=== PATIENT | female | born 1955 | race Caucasian/White ===

== ENCOUNTER 2017-03-15 20:31 | Emergency (ER) | payer OTHER ==
[~2017-03-15] VITALS: Ht 160 cm; Wt 74.5 kg
[~2017-03-15 20:31] MED LIST: LEVO.05 PO; LOPR50TA12 PO
[2017-03-15] MEDS ORDERED: IOHEXOL 350 MG/ML 10 ML VIAL (for RAD DIAG) IVCONTRAST ONE (20:32)
[2017-03-15 20:52] VITALS: BP 162/86; PULSE 94; RESP 18; TEMP 98.5; O2SAT 94
[2017-03-15] MEDS ORDERED: ARMO30TA PO (20:52)
[2017-03-15] MEDS ORDERED: AMLO10TA2 PO (20:52)
[2017-03-15] MEDS ORDERED: NADO20TA PO (20:52)
[2017-03-15] MEDS ORDERED: LOSA50TA PO (20:52)
[2017-03-15 20:55] VITALS: RESP 18; O2SAT 94
[2017-03-15] MEDS: NITROGLYCERIN 0.4 MG SL 25 TABS/BTL SL SCH ×3 (21:00→21:10)
[2017-03-15] MEDS ORDERED: SODIUM CHLORIDE 0.9% FLUSH 10 ML FLUSH IVF PRN (21:00)
--- NOTE | 2017-03-15 21:08 | PD ---
HPI Chief Complaint: Chest Pain Time Seen by Provider: 20:52 Travel History International Travel<30 days: No Contact w/Intl Traveler<30days: No Traveled to known affect area: No History of Present Illness HPI 61 year-old female presents to the emergency department by private transportation for evaluation of near syncope chest pain and transient low back pain. Patient has history of hypertension and tobaccoism. Patient denies history of diabetes or dyslipidemia. Patient has not had stress test or catheter in the past. No prior history of CAD. Patient states she's been under a normal stress test and was sitting down and started feeling just a wave of weakness about her entire body then developed some chest discomfort that was moderate in intensity but has now decreased to 3/10 in intensity brief tingling sensation in the left upper extremity that has resolved without weakness and then had a bout of diarrhea 2 and then at brief low back pain that has resolved. No lower extremity numbness tingling or weakness no bladder or bowel dysfunction. No saddle anesthesia. No recent injury or fall. Patient denies fever or chills. Patient completed a course of Keflex one week ago that she been taking for dental pain. Patient denies any abdominal pain. No headache. No change in mentation. No visual disturbance. No dizziness. Patient states she took 2 regular strength aspirin prior to arrival to the emergency department. Patient does take antihypertensive and did take her medication today. PFSH Past Medical History Cardiovascular Problems: Yes Hypertension: Yes Thyroid Disease: Yes ?: Not Social History Alcohol Use: Yes (OCC. BEEER) Tobacco Use: Yes (1-2 CIGS PER DAY, "QUITTING') Substance Use: No Allergies-Medications (Allergen,Severity, Reaction): Coded Allergies: No Known Allergies (Verified , 03/15/17) Reported Meds & Prescriptions Reported Meds & Active Scripts Active Reported Randa Thyroid (Thyroid) 30 Mg Tab 30 Mg PO DAILY Amlodipine (Amlodipine Besylate) 10 Mg Tab 10 Mg PO DAILY Losartan (Losartan Potassium) 50 Mg Tab 50 Mg PO DAILY Nadolol 20 Mg Tab 20 Mg PO DAILY Review of Systems Except as stated in HPI: all other systems reviewed are Neg General / Constitutional: No: Fever, Chills Eyes: No: Diploplia, Blurred Vision, Photophobia HENT: No: Headaches, Lightheadedness, Congestion Cardiovascular: Positive: Chest Pain or Discomfort, Irregular Rhythm, No: Palpitations, Diaphoresis, Syncope, Dyspnea on exertion, Edema (near-syncope) Respiratory: No: Cough, Shortness of Breath, Wheezing Gastrointestinal: Positive: Nausea, No: Vomiting, Diarrhea, Abdominal Pain Genitourinary: No: Dysuria Musculoskeletal: Positive: Pain, No: Limited ROM, Weakness Skin: No Rash (brief low-back pain) Neurologic: Positive: Weakness, Paresthesia (transient left upper extremity at shoulder and now resolved), No: Dizziness, Syncope (generalized), Focal Abnormalities, Coordination Problem, Headache, Change in Mentation, Slurred Speech Psychiatric: No: Anxiety Hematologic/Lymphatic: No: Lymph Node Enlargement Physical Exam Narrative GENERAL: Well-developed well-nourished female in no acute distress no respiratory distress SKIN: Warm and dry. HEAD: Atraumatic. Normocephalic. EYES: Pupils equal and round. No scleral icterus. No injection or drainage. ENT: No nasal bleeding or discharge. Mucous membranes pink and moist. NECK: Trachea midline. No JVD. CARDIOVASCULAR: Regular rate and rhythm. RESPIRATORY: No accessory muscle use. Clear to auscultation. Breath sounds equal bilaterally. GASTROINTESTINAL: Abdomen soft, non-tender, nondistended. Hepatic and splenic margins not palpable. MUSCULOSKELETAL: Extremities without clubbing, cyanosis, or edema. No obvious deformities. Radial and dorsalis pedis pulses 2+ to palpation bilaterally. No cervical dorsal or lumbar spine tenderness to direct palpation no flank tenderness to percussion or palpation. NEUROLOGICAL: Awake and alert. No obvious cranial nerve deficits. Motor grossly within normal limits. Five out of 5 muscle strength in the arms and legs. Sensory exam grossly intact. Normal speech. PSYCHIATRIC: Appropriate mood and affect; insight and judgment normal. Data Data Last Documented VS Vital Signs Date Time Temp Pulse Resp B/P (MAP) Pulse Ox O2 Delivery O2 Flow Rate FiO2 03/15/17 23:32 78 18 117/60 (79) 98 Room Air 03/15/17 20:52 98.5 Orders Orders Electrocardiogram (03/15/17 20:52) Basic Metabolic Panel (Bmp) (03/15/17 20:52) Ckmb (Isoenzyme) Profile (03/15/17 20:52) Complete Blood Count With Diff (03/15/17 20:52) Magnesium (Mg) (03/15/17 20:52) Prothrombin Time / Inr (Pt) (03/15/17 20:52) Act Partial Throm Time (Ptt) (03/15/17 20:52) Troponin I (03/15/17 20:52) Chest, Single Ap (03/15/17 20:52) Ecg Monitoring (03/15/17 20:52) Bilateral Bp Monitoring (03/15/17 20:52) Iv Access Insert/Monitor (03/15/17 20:52) Oximetry (03/15/17 20:52) Oxygen Administration (03/15/17 20:52) Sodium Chloride 0.9% Flush (Ns Flush) (03/15/17 21:00) Nitroglycerin Sl (Nitrostat Sl) (03/15/17 21:00) Sodium Chlor 0.9% 1000 Ml Inj (Ns 1000 M (03/15/17 21:00) CKMB (03/15/17 21:15) CKMB% (03/15/17 21:15) Ondansetron Inj (Zofran Inj) (03/15/17 22:00) C Diff Toxin Pcr (03/15/17 21:54) Enteric Path (Stool) (03/15/17 21:54) Lactic Acid (03/15/17 21:54) Blood Culture (03/15/17 21:54) Potassium Chloride (Kcl) (03/15/17 22:00) Cta Thor Abd Aorta W Iv C W3d (03/15/17 ) Hepatic Functional Panel (03/15/17 21:15) Lipase (03/15/17 21:15) Metoclopramide Inj (Reglan Inj) (03/15/17 22:30) Iohexol 350 Inj (Omnipaque 350 Inj) (03/15/17 20:32) Sodium Chlorid 0.9% 500 Ml Inj (Ns 500 M (03/15/17 23:45) Sodium Chlorid 0.9% 500 Ml Inj (Ns 500 M (03/15/17 23:45) Labs Laboratory Tests Test 03/15/17 21:15 03/15/17 22:40 03/15/17 23:45 White Blood Count 15.4 TH/MM3 Red Blood Count 4.35 MIL/MM3 Hemoglobin 14.2 GM/DL Hematocrit 41.7 % Mean Corpuscular Volume 95.7 FL Mean Corpuscular Hemoglobin 32.6 PG Mean Corpuscular Hemoglobin Concent 34.0 % Red Cell Distribution Width 12.5 % Platelet Count 292 TH/MM3 Mean Platelet Volume 8.9 FL Neutrophils (%) (Auto) 80.5 % Lymphocytes (%) (Auto) 17.4 % Monocytes (%) (Auto) 0.6 % Eosinophils (%) (Auto) 0.6 % Basophils (%) (Auto) 0.9 % Neutrophils # (Auto) 12.4 TH/MM3 Lymphocytes # (Auto) 2.7 TH/MM3 Monocytes # (Auto) 0.1 TH/MM3 Eosinophils # (Auto) 0.1 TH/MM3 Basophils # (Auto) 0.1 TH/MM3 CBC Comment AUTO DIFF Differential Total Cells Counted 100 Neutrophils % (Manual) 76 % Band Neutrophils % 5 % Lymphocytes % 17 % Monocytes % 1 % Neutrophils # (Manual) 12.6 TH/MM3 Myelocytes 1 % Differential Comment FINAL DIFF MANUAL Platelet Estimate NORMAL Platelet Morphology Comment NORMAL Red Cell Morphology Comment NORMAL Prothrombin Time 10.7 SEC Prothromb Time International Ratio 1.0 RATIO Activated Partial Thromboplast Time 22.9 SEC Blood Urea Nitrogen 23 MG/DL Creatinine 0.89 MG/DL Random Glucose 218 MG/DL Total Protein 7.1 GM/DL Albumin 3.3 GM/DL Calcium Level 8.2 MG/DL Magnesium Level 2.0 MG/DL Alkaline Phosphatase 128 U/L Aspartate Amino Transf (AST/SGOT) 31 U/L Alanine Aminotransferase (ALT/SGPT) 39 U/L Total Bilirubin 0.9 MG/DL Direct Bilirubin 0.2 MG/DL Sodium Level 138 MEQ/L Potassium Level 3.2 MEQ/L Chloride Level 105 MEQ/L Carbon Dioxide Level 22.8 MEQ/L Anion Gap 10 MEQ/L Estimat Glomerular Filtration Rate 65 ML/MIN Indirect Bilirubin 0.7 MG/DL Total Creatine Kinase 129 U/L Creatine Kinase MB 1.7 NG/ML Troponin I 0.05 NG/ML Lipase 342 U/L Lactic Acid Level 2.7 mmol/L Exceptions Acute Myocardial Infarction ASA Not Given on Arrival: Already taken by patient (aspirin 2 tablets) MDM Medical Decision Making Medical Screen Exam Complete: Yes Emergency Medical Condition: Yes Medical Record Reviewed: Yes Interpretation(s) EKG: Normal sinus rhythm rate [address] elevation nonspecific ST segment flattening mild depression no ectopy Last Impressions Chest X-Ray 03/15/172051 Signed Impressions: Service Date/Time: Wednesday, March 15, 2017 21:27 - CONCLUSION: No acute disease. Dillon Merida MD CBC & BMP Diagram 03/15/17 21:15 Calcium Level 8.2 L, Magnesium Level 2.0 Vital Signs Date Time Temp Pulse Resp B/P (MAP) Pulse Ox O2 Delivery O2 Flow Rate FiO2 03/15/17 21:37 84 18 142/82 (102) 98 Room Air 03/15/17 21:32 82 113/73 (86) 123/66 (85) 03/15/17 20:55 18 94 Room Air 03/15/17 20:55 94 Room Air 03/15/17 20:55 94 18 94 Room Air 03/15/17 20:52 98.5 94 18 162/86 (111) 94 @ 23:40 lactic acid elevated: 2.7 Differential Diagnosis Chest pain, atypical chest pain, myocardial infarction, aortic dissection, arrhythmia, PE, electrolyte disturbance, colitis Narrative Course Patient placed on cardiac rehabilitation program director IV access obtained specimens collected and sent for resulting patient did take aspirin prior to arrival to the emergency department sublingual and) administered EKG performed which shows sinus rhythm rate [address] elevation identified patient has nonspecific ST segment depression with baseline artifact present @ 9:53 PM prior to administration of sublingual nitroglycerin residual chest discomfort had resolved completely however patient has subsequently had 2 loose diarrhea type stools and now complains of nausea with dry heaves; administered Zofran 4 mg IV on cardiac rehabilitation program director no ectopy no chest pain no shortness of breath ; Hemoccult of stool negative; PCR for C. difficile specimens sent for enteric pathogen stool specimen sent patient with recent antibiotic use one week ago. Patient also complains of chills recheck vital signs including temperature. AMA: The risks of leaving against medical advice without further evaluation treatment were discussed with the patient. These risks include cardiac dysfunction, cardiac dysrhythmia, possible heart attack, possible stroke or . The patient indicated understanding of these risks and appeared to have the capacity to make this decision. Sepsis Criteria SIRS Criteria (2 or more): Heart rate over 90 (94), WBC > 84880, < 4000 or > 10 % bands (15,400) Sepsis Criteria (SIRS+source): Infect source susp/known (GI/gastroenteritis) Severe Sepsis (+one): Lactate >2 (2.7) Diagnosis Primary Impression: Left against medical advice Disposition: AGAINST MEDICAL ADVICE Condition: Stable Rosa Locke MD Mar 15, 2017 21:08
[2017-03-15] MEDS: SODIUM CHLOR 0.9% 1000 ML INJ 1,000 ML IV SCH ×2 (21:25→23:22)
[2017-03-15 21:32] VITALS: BP_SYST 113; BP_SYST 123; BP_DIAS 66; BP_DIAS 73; PULSE 82
[2017-03-15 21:35] LABS: AUTOMATED NEUTROPHIL # 12.4 TH/MM3 (1.8-7.7); BASOPHIL # 0.1 TH/MM3 (0-0.2); BASOPHIL % 0.9 % (0.0-2.0); EOSINOPHIL # 0.1 TH/MM3 (0-0.4); EOSINOPHIL % 0.6 % (0.0-4.0); HEMATOCRIT 41.7 % (35.0-46.0); LYMPH % 17.4 % (9.0-44.0); LYMPHOCYTE # 2.7 TH/MM3 (1.0-4.8); MEAN CELL VOLUME 95.7 FL (80.0-100.0); MEAN CORPUSCULAR HEMOGLOBIN 32.6 PG (27.0-34.0); MONO % 0.6 % (0.0-8.0); NEUT % 80.5 % (16.0-70.0); PLATELET COUNT 292 TH/MM3 (150-450); RED BLOOD COUNT 4.35 MIL/MM3 (4.00-5.30); RED CELL DISTRIBUTION WIDTH 12.5 % (11.6-17.2); WHITE BLOOD COUNT 15.4 TH/MM3 (4.0-11.0)
[2017-03-15 21:37] VITALS: BP 142/82; PULSE 84; RESP 18; O2SAT 98
[2017-03-15 21:39] LABS: HEMO FLAGS AUTO DIFF
[2017-03-15 21:42] LABS: CHLORIDE 105 MEQ/L (98-107); POTASSIUM 3.2 MEQ/L (3.5-5.1); SODIUM (NA) 138 MEQ/L (136-145)
--- NOTE | 2017-03-15 21:42 | RADRPT ---
EXAM DATE/TIME: 03/15/2017 21:27 [facility] COMPARISON: No previous studies available for comparison. INDICATIONS : Chest pain. MEDICAL HISTORY : Hypertension. Thyroid disease SURGICAL HISTORY : None. ENCOUNTER: Initial ACUITY: 1 day PAIN SCORE: 7/10 LOCATION: Bilateral chest FINDINGS: A single view of the chest demonstrates the lungs to be symmetrically aerated without evidence of mas s, infiltrate or effusion. The cardiomediastinal contours are unremarkable. Osseous structures are intact. CONCLUSION: No acute disease. Dillon Merida MD on March 15, 2017 at 21:41 Board Certified Radiologist. This report was verified electronically.
[2017-03-15 21:45] LABS: ANION GAP 10 MEQ/L (5-15); BICARBONATE 22.8 MEQ/L (21.0-32.0); BLOOD UREA NITROGEN 23 MG/DL (7-18)
[2017-03-15 21:48] LABS: APTT (PATIENT) 22.9 SEC (24.3-30.1); GLOMERULAR FILTRATION RATE 65 ML/MIN (>89); PROTHROMBIN TIME - PATIENT 10.7 SEC (9.8-11.6)
[2017-03-15 21:51] LABS: CREATINE KINASE 129 U/L (26-192)
[2017-03-15] MEDS ORDERED: POTASSIUM CHLORIDE 20 MEQ CONTROLLED RELEASE TAB PO ONE (22:00)
[2017-03-15] MEDS ORDERED: ONDANSETRON HCL 4 MG/2 ML VIAL IV PUSH ONE (22:00)
[2017-03-15 22:03] LABS: BANDS 5 % (0-6); MYELOCYTES 1 % (0-0); NEUTROPHIL # MANUAL DIFF 12.6 TH/MM3 (1.8-7.7); POLYS (SEG NEUTROPHILS) 76 % (16-70); WBC DIFF SAMPLE 100
[2017-03-15 22:04] LABS: CKMB 1.7 NG/ML (0.5-3.6); PLATELET ESTIMATE SMEAR NORMAL (NORMAL); PLATELET MORPHOLOGY NORMAL (NORMAL); SCAN/DIFF FINAL DIFF MANUAL
[2017-03-15 22:21] LABS: ALT (GPT) 39 U/L (10-53)
[2017-03-15 22:22] LABS: AST (GOT) 31 U/L (15-37)
[2017-03-15 22:23] LABS: INDIRECT BILIRUBIN 0.7 MG/DL (0.0-0.8); TOTAL BILIRUBIN ADULT 0.9 MG/DL (0.2-1.0)
[2017-03-15 22:25] LABS: ALKALINE PHOSPHATASE 128 U/L (45-117)
[2017-03-15] MEDS ORDERED: METOCLOPRAMIDE HCL 10 MG/2 ML VIAL IV PUSH ONE (22:30)
[2017-03-15 23:32] VITALS: BP 117/60; PULSE 78; RESP 18; O2SAT 98
[2017-03-15] MEDS ORDERED: SODIUM CHLORID 0.9% 500 ML INJ 500 ML IV ONE ×2 (23:45)
--- NOTE | 2017-03-16 00:39 | RADRPT ---
EXAM DATE/TIME: 03/15/2017 23:05 [facility] COMPARISON: No previous studies available for comparison. INDICATIONS : Left sided chest pain. Rule out dissection. IV CONTRAST: 99 cc Omnipaque 350 (iohexol) IV RADIATION DOSE: 19.44 CTDIvol (mGy) MEDICAL HISTORY : Hypertension. Cardiovascular disease SURGICAL HISTORY : None. ENCOUNTER: Initial ACUITY: 1 day PAIN SCALE: 5/10 LOCATION: Left chest TECHNIQUE: Volumetric scanning was performed using a multi-row detector CT scanner. The data was post processed with a variety of visualization algorithms including full volume maximum intensity projection, multi -planar sliding thin slab reformation, curved planar reformation, and surface rendering techniques. Using automated exposure control and adjustment of the mA and/or kV according to patient size, radiat ion dose was kept as low as reasonably achievable to obtain optimal diagnostic quality images. DICOM format image data is available electronically for review and comparison. FINDINGS: No dissection or aneurysm of the aorta. Abdominal portion is mildly tortuous and slightly atheroscler otic. Heart size within normal limits. No perceptible coronary artery calcification. The lungs are clear. Liver is fatty infiltrated. No acute bone abnormality demonstrated. CONCLUSION: No acute abnormality. Specifically, no aortic dissection. Liver is fatty. Juni Ayers MD on March 16, 2017 at 0:31 Board Certified Radiologist. This report was verified electronically.
[2017-03-16 01:04] VITALS: BP 119/70; PULSE 76; RESP 18; O2SAT 98
[2017-03-16 03:35] LABS: C. DIFF EPI 027 PRESUMPTIVE NEGATIVE (NEGATIVE)
--- NOTE | 2017-03-16 13:42 | EKG ---
Date Performed: 03/15/2017 Time Performed: 20:43:02 PTAGE: 61 years EKG: Sinus rhythm POSSIBLE LEFT ATRIAL ENLARGEMENT MODERATE ST DEPRESSION ABNORMAL ECG PREVIOUS TRACING : 01/01/2000 00.34 Since prior tracing, precordial ST depression is new, consi fady ischemia. DOCTOR: Cade Mckinney Interpretating Date/Time 03/16/2017 13:41:34
== END 2017-03-16 01:13 | disposition left against medical advice (07) ==
LOC: PHED 20:31
DX: R07.9 Chest pain, unspecified (principal); R94.31 Abnormal electrocardiogram [ECG] [EKG]; I10 Essential (primary) hypertension; Z53.21 Procedure and treatment not carried out due to patient leaving prior to being seen by health care provider
CPT/HCPCS: 71010; 71275; 74174; 80048; 80076; 82550; 82552; 83605; 83690; 83735; 84484; 85007; 85027; 85610; 85730; 87040; 87493; 87506; 93005; 96361; 96374; 96375; 99285; J2405; J2765; J7030; J7040; Q9967